=== PATIENT | female | born 1990 | race Caucasian/White ===

== ENCOUNTER 2016-07-30 17:31 | Inpatient (IN) | payer OTHER ==
[~2016-07-30] VITALS: Ht 162.6 cm; Wt 90.3 kg
[~2016-07-30 17:31] MED LIST: PNV1CAPS17 PO
[2016-07-30] MEDS ORDERED: LACTATED RINGER'S 1,000 ML IV PRN (18:00)
[2016-07-30] MEDS ORDERED: DINOPROSTONE 10 MG VAG SUPP VAG ONE (18:30)
[2016-07-30] MEDS ORDERED: BUTORPHANOL 2 MG INJ IV PRN ×2 (18:30)
[2016-07-30] MEDS ORDERED: OXYTOCIN 30 UNITS/LR 500 ML IV SCH ×2 (18:30)
[2016-07-30] MEDS ORDERED: LIDOCAINE 1% (MPF) 30 ML INJ INJ PRN (18:30)
[2016-07-30] MEDS ORDERED: AMPICILLIN 2 GM/NS (PMX) 100 ML IV ONE (18:30)
[2016-07-30] MEDS ORDERED: MISOPROSTOL 200 MCG TAB PR PRN (18:30)
[2016-07-30] MEDS ORDERED: METHYLERGONOVINE 0.2 MG INJ IM PRN (18:30)
[2016-07-30] MEDS ORDERED: CARBOPROST 250 MCG INJ IM PRN (18:30)
[2016-07-30] MEDS ORDERED: OXYTOCIN 30 UNITS/LR 500 ML IV PRN (18:30)
[2016-07-30] MEDS ORDERED: ACETAMINOPHEN/CODEINE #3 TAB PO PRN (18:30)
[2016-07-30] MEDS ORDERED: IBUPROFEN 600 MG TAB PO PRN (18:30)
--- NOTE | 2016-07-30 18:41 | CONS ---
Date/Time of Note Date/Time of Note DATE: 07/30/16 TIME: 18:33 Consultation Date/Type/Reason Admit Date/Time July 30, 2006 OB triage consult Reason for Consultation This patient is a 25 years old 3 para 1 , 1 term 1 ,with estimated date of confinement of July 29, 2016 which makes her 40 weeks and 1 day now. She came in to triage and complaining of uterine contractions On general examination she is a well-developed well-nourished patient at term. Her general vital signs appears to be normal with blood pressure 129/80 pulse 91 respiration 20 and temperature 98.1 On examining of her abdomen she does not have any contractions. Presentation appears to be vertex On pelvic examination the cervix is 1 cm long and -3 station with intact membranes Hx of Present Illness Constitutional: No chills, No diaphoresis, No disoriented, No febrile, No improved, No no complaints, No other, No poor po, No requiring IVF, No requiring O2 Eyes: No discharge, No no complaints, No other, No pain, No redness, No visual change ENT: No bleeding, No congestion, No discharge, No dysphagia, No no complaints, No other, No pain, No sore throat Respiratory: No cough, No no complaints, No other, No pain, No pleuritic pain, No shortness of breath, No sputum, No wheezing Cardiovascular: No chest pain, No edema, No lightheadedness, No no complaints, No orthopenea, No other, No palpitations, No paroxysmal nocturnal dyspnea Gastrointestinal: other (On pelvic exam as I mentioned her cervix is about 1 cm long and -2 station with intact membranes), No blood, No constipation, No decreased appetite, No diarrhea, No flatus, No nausea, No no complaints, No pain, No passing stool, No vomiting Genitourinary: No bleeding, No discharge, No dysuria, No flank pain, No hematuria, No no complaints, No other Musculoskeletal: No back pain, No bone/joint pain, No neck pain, No no complaints, No other, No restricted range of motion, No swelling Skin: No bruising, No erythema, No laceration, No no complaints, No other, No pruritis, No rash, No skin lesions Neurologic: No confusion, No dizziness, No focal-weakness, No headache, No no complaints, No other, No seizure, No syncope Endocrine: No dry skin, No no complaints, No other, No polydypsia, No polyuria , No temp intolerance Exam/Review of Systems Medications Medications Current Medications Lactated Ringer's 1,000 ml @ 125 mls/hr Q8H IV ; Start 07/30/16 at 18:18 Ampicillin 100 ml @ 100 mls/hr ONCE ONCE IV ; Start 07/30/16 at 18:30; Stop at 19:29 Ampicillin (Ampicillin 1 Gm/ NS (Pmx)) 50 ml @ 100 mls/hr Q4H IV ; Start at 22:30 Butorphanol Tartrate (Stadol) 1 mg Q2H PRN IV PAIN; Start 07/30/16 at 18:30 Butorphanol Tartrate (Stadol) 2 mg Q2H PRN IV PAIN; Start 07/30/16 at 18:30 Lidocaine 30 ml 30 ml ONCE PRN INJ EPISIOTOMY/TEARING; Start 07/30/16 at 18:30 Oxytocin/Lactated Ringer's 500 ml @ 125 mls/hr ONCE IV ; Start 07/30/16 at 18: 30 Ibuprofen (Motrin) 600 mg ONCE PRN PO Mild Pain (Pain Score 1-3); Start at 18:30 Acetaminophen/ Codeine Phosphate 2 tab 2 tab ONCE PRN PO Moderate to Severe Pain (4-10); Start 07/30/16 at 18:30 Lactated Ringer's 1,000 ml @ 2,000 mls/hr Q30M PRN IV PRE-EPIDURAL BOLUS; Start 07/30/16 at 18:00 Oxytocin/Lactated Ringer's 500 ml @ 0 mls/hr ONCE PRN IV For Hemorrhage Management; Start 07/30/16 at 18:30 Methylergonovine Maleate (Methergine) 0.2 mg ONCE PRN IM VAGINAL BLEEDING; Start 07/30/16 at 18:30 Carboprost Tromethamine (Hemabate) 250 mcg ONCE PRN IM VAGINAL BLEEDING; Start 07/30/16 at 18:30 Misoprostol (Cytotec) 1,000 mcg ONCE PRN [place] VAGINAL BLEEDING; Start 07/30/16 at 18:30 JOSE A ADAIR MD July 30, 2016 18:41
[2016-07-30 19:18] VITALS: BP 129/80; PULSE 91; RESP 20; Ht 162.6 cm; Wt 90.3 kg
--- NOTE | 2016-07-30 19:47 | TRIAGE ---
OB Triage Datetime Report Generated by CPN: 07/30/2016 19:47 Datetime: 07/30/2016 19:35 Time of Arrival: 07/30/2016 17:27 EGA: 40.1 Arrived By: Ambulatory Arrived From: Home Chief Complaint: UC'S , VAGINAL PRESSURE Movement: Present Contractions: Irregular Contractions: 5-10 Rupture of Membranes: Denies Vaginal Bleeding: None Vaginal Discharge: Denies Recent Sexual Intercouse: Denies Abdominal Trauma: Not Applicable Patient Complaints: Contractions; Cramping; Back Pain Time Provider Notified: 07/30/2016 18:00 Provider Notified: DR. ADAIR Initial Plan: SVE Datetime: 07/30/2016 19:05 Labor Evaluation Frequency: IRREG Monitor Mode: External Duration (sec)2399: 50-90 Quality: Mild Pattern: Normal: <= 5 Contractions in 10 Minutes Resting Tone [place]: Relaxed Contraction Comments: NST REACTIVE FOR GESTATIONAL AGE Heart Rate FHR Baseline Rate: 135 Monitor Mode: External US Variability: Moderate 6-25 bpm Accelerations: 15X15 Decelerations: None Category: Category I Datetime: 07/30/2016 19:01 Membrane Status: Intact Datetime: 07/30/2016 18:26 Vaginal Exam Dilatation (cms): 1.0 Effacement (%): 30 Station: -3 Exam By: OGBODU Vaginal Bleeding: None Cervix, Consistency: Moderate Cervix, Position: Anterior Presentation 'A': Cephalic Datetime: 07/30/2016 18:00 Stage of : OB Triage Maternal Assessment Level of Consciousness: Fully Conscious DTR's/Clonus: DTRs 2+; No Clonus Headache: Denies Blurred Vision: No Respiratory Effort: Unlabored; Regular Rhythm; Equal Expansion Breath Sounds, Left: Clear and Equal Breath Sounds, Right: Clear and Equal Nausea/Vomiting: Denies RUQ Epigastric Pain: Denies Lower Extremities Edema: None Degree: None Upper Extremities Edema: None Degree: None Facial Edema: None Temperature Route: Axillary Fall Risk Assessment History of Falling: (0) No Secondary Diagnosis: (0) No Ambulatory Aid: (0) Bedrest/Nurse Assist IV Therapy: (0) No Gait: (0) Normal/Bedrest/Immobile Mental Status: (0) Oriented to Own Ability Fall Score: 0 Fall Risk Score Definition: No Risk: No action required
--- NOTE | 2016-07-30 20:36 | RADRPT ---
PROCEDURE: Obstetrical ultrasound. CLINICAL INDICATION: , evaluation. Pelvic pain. TECHNIQUE: Transabdominal sonographic images of the pelvis are obtained. COMPARISON: OB ultrasound 06/24/2016 FINDINGS: Single intrauterine gestation. There is a cephalic presentation. Measurements were made in order to determine age. The results are as follows: BPD = 9.76 cm HC = 35.31 cm AC = 35.5 a cm FL = 7.64 cm Heart rate = 138 beats per minute The placenta is anterior. There is no evidence for an abruption or placenta previa. Ovaries are not visualized. IMPRESSION: Single intrauterine gestation of approximately 40 weeks 0 days by ultrasound criteria. [place] estimated weight = 3855 g; 67 percentile for gestational age of 40 weeks 1 days. RPTAT: AADD .Bart Montero MD, Date Time Electronically viewed and signed by .Bart Montero MD, MD on 07/30/2016 20:36 .B/
[2016-07-30] MEDS: LACTATED RINGER'S 1,000 ML IV SCH (21:18)
--- NOTE | 2016-07-30 21:43 | HP ---
Date/Time of Note Date/Time of Note DATE: 07/30/16 TIME: 21:40 OB - History Hx of Present Chief Complaint: contractions Estimated Due Date: July 30, 2016 : 3 Para: 1 Spontaneous : 1 Therapeutic : 0 Care: Good Care Ultrasounds: Normal mid trimester US Obstetrical Complications: None Medical Complications: None Past Family/Social History * Past Medical, Surgical, Family and Obstetric Histories reviewed from chart. GBS Status: Negative OB Admission Exam Vital Signs Vital Signs Vital Signs Date Time Temp Pulse Resp B/P Pulse Ox O2 Delivery O2 Flow Rate FiO2 07/30/16 19:18 98.1 91 20 129/80 98 Room Air Physical Exam HEENT: WNL Heart: Rhythm Normal Lungs: Clear Abdomen: WNL Extremities: Normal Cervical Dilatation: 1cm Effacement: 50% Station: -1 Membranes: Intact Heart Rate: 140's Accelerations: Accelerations Present Decelerations: No Decelerations Varibility: Moderate OB Assessment/Plan Reason for admission: other (Term ) Plan: Induction JUD BECKWITH MD July 30, 2016 21:43
[2016-07-30 21:56] LABS: ADD SCAN DIFF NO
[2016-07-30 22:01] LABS: BASOPHILS % 0.2 % (0.0-2.0); EOSINOPHILS % 0.4 % (0.0-7.0); HEMATOCRIT 33.9 % (37.0-47.0); HEMOGLOBIN 11.6 g/dl (12.0-16.0); LYMPHOCYTES # 3.1 10^3/ul (0.8-2.9); LYMPHOCYTES % 30.1 % (15.0-51.0); MEAN CORPUSCULAR HEMOGLOBIN 29.9 pg (29.0-33.0); MEAN CORPUSCULAR HGB CONC 34.2 g/dl (32.0-37.0); MEAN CORPUSCULAR VOLUME 87.4 fl (82.0-101.0); MEAN PLATELET VOLUME 11.7 fl (7.4-10.4); MONOCYTE # 0.8 10^3/ul (0.3-0.9); MONOCYTES % 8.1 % (0.0-11.0); NEUTROPHIL # 6.2 10^3/ul (1.6-7.5); NEUTROPHILS % 60.7 % (39.0-77.0); PLATELET COUNT 226 10^3/UL (140-415); RED BLOOD COUNT 3.88 10^6/ul (4.20-5.40); RED CELL DISTRIBUTION WIDTH 13.8 % (11.5-14.5); WHITE BLOOD COUNT 10.2 10^3/ul (4.8-10.8)
[2016-07-30] MEDS: MISOPROSTOL 25 MCG CAPSULE PO SCH (22:07)
[2016-07-30 22:14] LABS: INR 0.98
[2016-07-30 22:15] LABS: PARTIAL THROMBOPLASTIN TIME 26.7 Sec (25.0-35.0)
[2016-07-30] MEDS ORDERED: AMPICILLIN 1 GM/NS (PMX) 50 ML IV SCH (22:30)
[2016-07-31] MEDS: MISOPROSTOL 25 MCG CAPSULE PO SCH ×2 (02:05→06:00)
[2016-07-31] MEDS: LACTATED RINGER'S 1,000 ML IV SCH ×3 (04:37→20:39)
[2016-07-31] MEDS ORDERED: DINOPROSTONE 10 MG VAG SUPP VAG ONE ×2 (10:00→23:00)
--- NOTE | 2016-07-31 16:59 | QN ---
Documentation Comment 25 years old 3 para 1 admitted at 40 weeks and 2 day for induction of labor, induction started with Cervidil which was placed in the vagina at 1030 today at the time of Cervidil insertion cervix was closed 50% effaced vertex at -2 station, patient having mild contractions, according to the nursing examination cervix seems softer and dilated to 1cm Cervidil will be remove at 10 PM we will continue induction of labor pending cervical dilatation at 10 PM , if 2 cm or more Pitocin IV drip. Is contemplated CINTHYA MURCIA MD July 31, 2016 16:58
[2016-08-01] MEDS: LACTATED RINGER'S 1,000 ML IV SCH ×4 (04:51→22:57)
[2016-08-01 13:07] LABS: RUBELLA ANTIBODY - IGG 4.52 index
[2016-08-01] MEDS ORDERED: OXYTOCIN 30 UNITS/LR 500 ML IV SCH (13:30)
--- NOTE | 2016-08-01 18:15 | QN ---
Documentation Comment Vital signs stable, christiane every 3-4 minute pelvic exam cervix 3 cm 75% effaced vertex at -2 station, not much change from previous exam requesting labor epidural, will continue labor augmentation , had premature rupture of membrane at 1451, if not delivered within the next 3 hours will consider prophylactic antibiotics. CINTHYA MURCIA MD August 01, 2016 18:15
[2016-08-01] MEDS ORDERED: DIPHENHYDRAMINE 50 MG INJ IV PRN (19:00)
[2016-08-01] MEDS ORDERED: KETOROLAC 30 MG INJ IV PRN (19:00)
[2016-08-01] MEDS ORDERED: HYDROmorphONE 1 MG/ML SYG IV PRN ×2 (19:00)
[2016-08-01] MEDS ORDERED: NALOXONE (0.4 MG/ML) INJ IV PRN (19:00)
[2016-08-01] MEDS ORDERED: FENTAnyl 2MCG/ML-ROPIV 0.2% 100 ML BAG EPI SCH (19:00)
[2016-08-01] MEDS ORDERED: ONDANSETRON 4 MG INJ IV PRN (19:00)
[2016-08-01] MEDS ORDERED: ACETAMINOPHEN 325 MG TAB PO PRN (22:00)
[2016-08-02] VITALS (14 sets, daily range): BP systolic 109–143; BP diastolic 56–81; PULSE 74–157; RESP 18–22
--- NOTE | 2016-08-02 04:21 | LDN ---
Date/Time of Note Date/Time of Note DATE: 08/02/16 TIME: 04:17 Delivery Summary normal vaginal delivery Weeks of Gestation 40w3d Placenta Delivered: Spontaneously Meconium: none Episiotomy: No Perineal laceration: 1 Laceration repair: 000ch gut Anesthesia type: Epidural Estimated blood loss: 50 Sponge & Needle done & correct: Yes All needle counts correct: Yes Any foreign bodies felt in the: No Problems: Delivery Information Sex Sex: male Apgars 1 Minute: 8 5 Minute: 9 Suctioning Nose & mouth suctioned at alexy: Yes Delee suction performed: No Umbilical Cord Umbilical cord with: 3 Vessels Cord presentations: no nuchal cord Cord Blood was obtained: Yes Mother & Baby Disposition Disposition Mom & Baby to Maternity; Good: Yes Mom transferred to: Other Baby to NICU: No () KAREEM MCGUIRE MD August 02, 2016 04:21
[2016-08-02] MEDS: LACTATED RINGER'S 1,000 ML IV* SCH ×3 (04:22→20:22)
[2016-08-02] MEDS ORDERED: MISOPROSTOL 200 MCG TAB PR PRN ×2 (04:30→06:30)
[2016-08-02] MEDS ORDERED: CARBOPROST 250 MCG INJ IM PRN ×2 (04:30→06:30)
[2016-08-02] MEDS ORDERED: METHYLERGONOVINE 0.2 MG INJ IM PRN ×2 (04:30→06:30)
[2016-08-02] MEDS ORDERED: BENZOCAINE 20% 56 ML SPRAY TOP PRN (06:30)
[2016-08-02] MEDS ORDERED: OXYCODONE/ASPIRIN (4.88/325) TAB PO PRN ×2 (06:30)
[2016-08-02] MEDS ORDERED: LANOLIN 7 GM TUBE TOP PRN (06:30)
[2016-08-02] MEDS ORDERED: WITCH HAZEL/GLYCERIN PAD PR PRN (06:30)
[2016-08-02] MEDS ORDERED: OXYTOCIN 30 UNITS/LR 500 ML IV PRN (06:30)
[2016-08-02] MEDS ORDERED: ZOLPIDEM 5 MG TAB PO PRN (06:30)
[2016-08-02] MEDS: IBUPROFEN 600 MG TAB PO SCH ×4 (07:00→23:26)
[2016-08-02] MEDS: OXYTOCIN 30 UNITS/LR 500 ML IV PRN ×2 (07:18→08:29)
[2016-08-02] MEDS ORDERED: morphine 4 MG/ML VIAL IV STA (08:14)
[2016-08-02] MEDS ORDERED: MISOPROSTOL 200 MCG TAB SL STA (08:32)
[2016-08-02] MEDS ORDERED: MULTIVIT/MIN/FOLATE/IRON/PREN TAB PO ONE (09:00)
[2016-08-02] MEDS: SENNA/DOCUSATE NA (8.6MG/50MG) TAB PO SCH ×2 (09:00→21:00)
[2016-08-02] MEDS ORDERED: DIPHENHYDRAMINE 50 MG INJ ONE (09:20)
[2016-08-02] MEDS ORDERED: DIPHENHYDRAMINE 50 MG INJ IV ONE (09:30)
[2016-08-02 09:51] LABS: ADD SCAN DIFF NO
[2016-08-02 10:00] LABS: BASOPHILS % 0.1 % (0.0-2.0); HEMATOCRIT 34.3 % (37.0-47.0); HEMOGLOBIN 11.3 g/dl (12.0-16.0); LYMPHOCYTES # 2.6 10^3/ul (0.8-2.9); LYMPHOCYTES % 14.1 % (15.0-51.0); MEAN CORPUSCULAR HEMOGLOBIN 29.6 pg (29.0-33.0); MEAN CORPUSCULAR HGB CONC 32.9 g/dl (32.0-37.0); MEAN CORPUSCULAR VOLUME 89.8 fl (82.0-101.0); MEAN PLATELET VOLUME 11.5 fl (7.4-10.4); MONOCYTE # 1.2 10^3/ul (0.3-0.9); MONOCYTES % 6.4 % (0.0-11.0); NEUTROPHIL # 14.3 10^3/ul (1.6-7.5); NEUTROPHILS % 78.7 % (39.0-77.0); PLATELET COUNT 209 10^3/UL (140-415); RED BLOOD COUNT 3.82 10^6/ul (4.20-5.40); RED CELL DISTRIBUTION WIDTH 13.6 % (11.5-14.5); WHITE BLOOD COUNT 18.2 10^3/ul (4.8-10.8)
[2016-08-02] MEDS ORDERED: SOD CHLORIDE 0.9% 500 ML IV ONE (10:00)
[2016-08-02] MEDS: SOD CHLORIDE 0.9% 1,000 ML IV SCH ×2 (10:00→18:00)
[2016-08-02 10:06] LABS: ALBUMIN 2.8 g/dl (3.3-4.9); ALBUMIN/GLOBULIN RATIO 0.96; BILIRUBIN,INDIRECT 0.3 mg/dl (0-1.1); BILIRUBIN,TOTAL 0.3 mg/dl (0.2-1.3); CALCIUM 8.9 mg/dl (8.4-10.2); CREATININE 0.55 mg/dl (0.44-1.00); POTASSIUM 4.5 mmol/L (3.5-5.1); TOTAL PROTEIN 5.7 g/dl (6.1-8.1)
[2016-08-02] MEDS ORDERED: SOD CHLORIDE 0.9% 100 ML ONE (10:13)
[2016-08-02] MEDS ORDERED: IODIXANOL LOCM 100 ML BTL ONE (10:13)
[2016-08-02] MEDS ORDERED: IODIXANOL LOCM 50 ML BTL ONE (10:14)
--- NOTE | 2016-08-02 10:45 | RADRPT ---
PROCEDURE: CT pulmonary angiogram. CLINICAL INDICATION: Chest pain and shortness of breath. TECHNIQUE: CT scan of the chest and CT pulmonary angiogram was performed utilizing axial tomograp hic imaging from the thoracic inlet to the domes of the diaphragm. High-resolution thin slice coron al and sagittal imaging was obtained from the axial source images. 3-D volumetric rendered post pro cessing was performed as well. The patient was examined following the uncomplicated intravenous adm inistration of 115 cc of Visipaque 320. The images were reviewed on a PACS workstation. The total ex am CTDI equals 42.25, 18.62 and the total exam DLP equals 603.23 mGy-cm. COMPARISON: No prior studies are available for comparison. FINDINGS: The lungs demonstrate bibasilar atelectatic changes. No focal airspace opacity, pleural effusion, o r pneumothorax is seen. No pulmonary nodules or masses are identified. There is no abnormal interst itial thickening. The trachea and proximal bronchi are unremarkable. The visualized thyroid is unremarkable. The heart is mildly enlarged. The aorta demonstrates rocky l branching pattern. The aorta is normal in caliber. There is no evidence of aortic dissection. Th e central pulmonary arteries are normal in caliber. The attenuation of the central pulmonary arteri es measures 200 HU. No filling defects are identified within the proximal pulmonary arterial branch es to suggest pulmonary embolism. No hilar, mediastinal, or axillary lymphadenopathy is identified. Limited evaluation of the upper abdomen is unremarkable. The osseous structures are unremarkable. IMPRESSION: 1. No CT evidence for pulmonary embolism. 2. Low lung volumes with mild bibasilar atelectasis. 3. Mild cardiomegaly. RPTAT: HH .Federica Starks MD, Date Time Electronically viewed and signed by .Federica Starks MD, on 08/02/2016 10:44 .G/
[2016-08-02] MEDS ORDERED: ACETAMINOPHEN 325 MG TAB PO PRN (12:00)
[2016-08-02] MEDS: OXYTOCIN 30 UNITS/LR 500 ML IV SCH ×4 (13:13→23:30)
[2016-08-02] MEDS ORDERED: DIPHENOXYLATE/ATROPINE TAB PO PRN (16:00)
--- NOTE | 2016-08-02 17:59 | QN ---
Documentation Comment called to room to evaluate pph some clots removed but furhter clotes noted and Pt in pain. morphine given and pt with allergic?/axiety attack with elevated Hr and feeling shakey. benedryl given. vss exam wnl. clots removed from vagina. rapid response called. ekg done. bp 140/60 o2 98 pouylse 140 ekg sinus tacy exam wnl a/p PPH cbc,cmp,ekg allergic reaction? ct angio continue care >30 minute with patient RICARDO VALLE MD August 02, 2016 17:59
[2016-08-02 18:20] LABS: ADD SCAN DIFF NO
[2016-08-02 18:22] LABS: BASOPHILS % 0.1 % (0.0-2.0); EOSINOPHILS % 0.1 % (0.0-7.0); HEMATOCRIT 27.7 % (37.0-47.0); HEMOGLOBIN 9.7 g/dl (12.0-16.0); LYMPHOCYTES # 2.6 10^3/ul (0.8-2.9); LYMPHOCYTES % 19.4 % (15.0-51.0); MEAN CORPUSCULAR VOLUME 85.8 fl (82.0-101.0); MEAN PLATELET VOLUME 11.4 fl (7.4-10.4); MONOCYTE # 0.9 10^3/ul (0.3-0.9); MONOCYTES % 6.7 % (0.0-11.0); NEUTROPHIL # 9.8 10^3/ul (1.6-7.5); NEUTROPHILS % 73.3 % (39.0-77.0); PLATELET COUNT 183 10^3/UL (140-415); RED BLOOD COUNT 3.23 10^6/ul (4.20-5.40); RED CELL DISTRIBUTION WIDTH 13.6 % (11.5-14.5); WHITE BLOOD COUNT 13.4 10^3/ul (4.8-10.8)
--- NOTE | 2016-08-02 19:32 | RADRPT ---
Vent Rate: 124 bpm RR Interval: 0 msec DE Interval: 124 msec QRS Duration: 76 msec QT Interval: 296 msec QTC Interval: 425 msec P-R-T Clemmons: 65 - 60 - 63 degrees Sinus tachycardia Nonspecific ST abnormality Abnormal ECG Baseline wander/artifact Electronically Signed By: Riley Rodriguez [id number]
[2016-08-03] MEDS: SOD CHLORIDE 0.9% 1,000 ML IV SCH (02:00)
[2016-08-03] MEDS: OXYTOCIN 30 UNITS/LR 500 ML IV SCH (03:30)
[2016-08-03 04:00] VITALS: BP 108/72; PULSE 73; RESP 19
[2016-08-03] MEDS: LACTATED RINGER'S 1,000 ML IV* SCH (04:22)
[2016-08-03] MEDS: IBUPROFEN 600 MG TAB PO SCH ×4 (05:55→23:30)
[2016-08-03 08:10] LABS: ADD SCAN DIFF NO
[2016-08-03 08:18] LABS: BASOPHILS % 0.1 % (0.0-2.0); EOSINOPHILS # 0.1 10^3/ul (0.0-0.5); EOSINOPHILS % 0.6 % (0.0-7.0); HEMATOCRIT 26.3 % (37.0-47.0); HEMOGLOBIN 8.8 g/dl (12.0-16.0); LYMPHOCYTES # 2.4 10^3/ul (0.8-2.9); LYMPHOCYTES % 30.8 % (15.0-51.0); MEAN CORPUSCULAR HEMOGLOBIN 29.5 pg (29.0-33.0); MEAN CORPUSCULAR HGB CONC 33.5 g/dl (32.0-37.0); MEAN CORPUSCULAR VOLUME 88.3 fl (82.0-101.0); MEAN PLATELET VOLUME 11.7 fl (7.4-10.4); MONOCYTE # 0.6 10^3/ul (0.3-0.9); MONOCYTES % 7.2 % (0.0-11.0); NEUTROPHIL # 4.7 10^3/ul (1.6-7.5); NEUTROPHILS % 60.5 % (39.0-77.0); PLATELET COUNT 156 10^3/UL (140-415); RED BLOOD COUNT 2.98 10^6/ul (4.20-5.40); WHITE BLOOD COUNT 7.7 10^3/ul (4.8-10.8)
[2016-08-03 08:20] VITALS: BP 105/59; PULSE 69; RESP 18
[2016-08-03] MEDS: SENNA/DOCUSATE NA (8.6MG/50MG) TAB PO SCH ×2 (09:00→21:00)
--- NOTE | 2016-08-03 09:28 | PN ---
Date/Time of Note Date/Time of Note DATE: 08/03/16 TIME: 09:27 OB Subjective Subjective Subjective day 1 Afebrile vital signs stable normal day 1 lochia hemoglobin 8.8 patient complains of no lightheadedness while walking abdomen soft uterus firm extremity normal Laboratory Tests Test 08/02/16 09:35 08/02/16 18:10 08/03/16 06:56 White Blood Count 18.210^3/ul 13.410^3/ul 7.710^3/ul Red Blood Count 3.8210^6/ul 3.2310^6/ul 2.9810^6/ul Hemoglobin 11.3g/dl 9.7g/dl 8.8g/dl Hematocrit 34.3% 27.7% 26.3% Mean Corpuscular Volume 89.8fl 85.8fl 88.3fl Mean Corpuscular Hemoglobin 29.6pg 30.0pg 29.5pg Mean Corpuscular Hemoglobin Concent 32.9g/dl 35.0g/dl 33.5g/dl Red Cell Distribution Width 13.6% 13.6% 14.0% Platelet Count 11195^3/UL 02117^3/UL 77196^3/UL Mean Platelet Volume 11.5fl 11.4fl 11.7fl Neutrophils % 78.7% 73.3% 60.5% Lymphocytes % 14.1% 19.4% 30.8% Monocytes % 6.4% 6.7% 7.2% Eosinophils % 0.0% 0.1% 0.6% Basophils % 0.1% 0.1% 0.1% Nucleated Red Blood Cells % 0.0/100WBC 0.0/100WBC 0.0/100WBC Neutrophils # 14.310^3/ul 9.810^3/ul 4.710^3/ul Lymphocytes # 2.610^3/ul 2.610^3/ul 2.410^3/ul Monocytes # 1.210^3/ul 0.910^3/ul 0.610^3/ul Eosinophils # 0.010^3/ul 0.010^3/ul 0.110^3/ul Basophils # 0.010^3/ul 0.010^3/ul 0.010^3/ul Nucleated Red Blood Cells # 0.010^3/ul 0.010^3/ul 0.010^3/ul Sodium Level 132mmol/L Potassium Level 4.5mmol/L Chloride Level 108mmol/L Carbon Dioxide Level 15mmol/L Anion Gap 14 Blood Urea Nitrogen 6mg/dl Creatinine 0.55mg/dl Glucose Level 82mg/dl Calcium Level 8.9mg/dl Total Bilirubin 0.3mg/dl Direct Bilirubin 0.00mg/dl Indirect Bilirubin 0.3mg/dl Aspartate Amino Transf (AST/SGOT) 41IU/L Alanine Aminotransferase (ALT/SGPT) 24IU/L Alkaline Phosphatase 207IU/L Total Protein 5.7g/dl Albumin 2.8g/dl Globulin 2.90g/dl Albumin/Globulin Ratio 0.96 Current Medications Medications (Trade) Dose Ordered Sig/Robbie Route PRN Reason Start Time Stop Time Status Last Admin Dose Admin Lactated Ringer's 1,000 ml @ 125 mls/hr Q8H IV 07/30/16 18:18 08/02/16 06:28 DC 08/01/16 22:57 Ampicillin 100 ml @ 100 mls/hr ONCE ONCE IV 07/30/16 18:30 07/30/16 21:27 DC Ampicillin (Ampicillin 1 Gm/ NS (Pmx)) 50 ml @ 100 mls/hr Q4H IV 07/30/16 22:30 07/30/16 22:30 DC Dinoprostone (Cervidil Vaginal Supp) 10 mg ONCE ONCE VAG 07/30/16 18:30 07/30/16 21:27 DC Butorphanol Tartrate (Stadol) 1 mg Q2H PRN IV PAIN 07/30/16 18:30 08/02/16 06:28 DC Butorphanol Tartrate (Stadol) 2 mg Q2H PRN IV PAIN 07/30/16 18:30 08/02/16 06:28 DC Lidocaine 30 ml 30 ml ONCE PRN INJ EPISIOTOMY/TEARING 07/30/16 18:30 08/02/16 06:28 DC Oxytocin/Lactated Ringer's 500 ml @ 125 mls/hr ONCE -MAY REPEAT X1 IV 07/30/16 18:30 08/02/16 06:28 DC 08/02/16 04:13 Oxytocin/Lactated Ringer's 500 ml @ 125 mls/hr ONCE IV 07/30/16 18:30 08/02/16 06:28 DC 08/02/16 04:21 Ibuprofen (Motrin) 600 mg ONCE PRN PO Mild Pain (Pain Score 1-3) 07/30/16 18:30 08/01/16 18:49 DC Acetaminophen/ Codeine Phosphate 2 tab 2 tab ONCE PRN PO Moderate to Severe Pain (4-10) 07/30/16 18:30 08/02/16 06:28 DC Lactated Ringer's 1,000 ml @ 2,000 mls/hr Q30M PRN IV PRE-EPIDURAL BOLUS 07/30/16 18:00 08/02/16 06:28 DC Oxytocin/Lactated Ringer's 500 ml @ 0 mls/hr ONCE PRN IV For Hemorrhage Management 07/30/16 18:30 08/02/16 06:28 DC Methylergonovine Maleate (Methergine) 0.2 mg ONCE PRN IM VAGINAL BLEEDING 07/30/16 18:30 08/02/16 06:28 DC Carboprost Tromethamine (Hemabate) 250 mcg ONCE PRN IM VAGINAL BLEEDING 07/30/16 18:30 08/02/16 06:28 DC Misoprostol (Cytotec) 1,000 mcg ONCE PRN RI VAGINAL BLEEDING 07/30/16 18:30 08/02/16 06:28 DC Misoprostol (Cytotec 25 Mcg Capsule) 50 mcg Q4H PO 07/30/16 22:00 07/31/16 09:49 DC 07/31/16 02:05 Dinoprostone (Cervidil Vaginal Supp) 10 mg ONCE ONCE VAG 07/31/16 10:00 07/31/16 10:01 DC 07/31/16 10:48 Dinoprostone 10 mg 10 mg ONCE ONCE VAG 07/31/16 23:00 07/31/16 23:01 DC 08/01/16 01:35 Oxytocin/Lactated Ringer's 500 ml @ 0 mls/hr TITRATE IV 08/01/16 13:30 08/02/16 06:28 DC 08/01/16 14:04 Naloxone HCl (Narcan) 0.1 mg Q2M PRN IV FOR RESP RATE 8 OR LESS 08/01/16 19:00 08/02/16 06:28 DC Ketorolac Tromethamine (Toradol) 30 mg Q6H PRN IV PAIN 08/01/16 19:00 08/02/16 06:28 DC Hydromorphone HCl (Dilaudid) 0.2 mg Q3H PRN IV PAIN LEVEL 1-5 08/01/16 19:00 08/02/16 06:28 DC Hydromorphone HCl (Dilaudid) 0.4 mg Q3H PRN IV PAIN LEVEL 6-10 08/01/16 19:00 08/02/16 06:28 DC Diphenhydramine HCl (Benadryl) 25 mg Q6H PRN IV ITCHING 08/01/16 19:00 08/02/16 06:28 DC Ondansetron HCl (Zofran Inj) 4 mg Q6H PRN IV NAUSEA AND/OR VOMITING 08/01/16 19:00 08/02/16 06:28 DC Fentanyl/ Ropivacaine 100 ml EPIDURAL INFUSION EPI 08/01/16 19:00 08/02/16 06:28 DC 08/02/16 01:28 Acetaminophen 650 mg 650 mg Q4H PRN PO PAIN AND OR ELEVATED TEMP 08/01/16 22:00 08/02/16 06:28 DC 08/01/16 21:56 Lactated Ringer's 1,000 ml @ 125 mls/hr Q8H IV* 08/02/16 04:22 08/02/16 17:42 Oxytocin/Lactated Ringer's 500 ml @ 0 mls/hr ONCE PRN IV For Hemorrhage Management 08/02/16 04:30 08/02/16 08:29 Methylergonovine Maleate (Methergine) 0.2 mg ONCE PRN IM VAGINAL BLEEDING 08/02/16 04:30 Carboprost Tromethamine (Hemabate) 250 mcg ONCE PRN IM VAGINAL BLEEDING 08/02/16 04:30 Misoprostol (Cytotec) 1,000 mcg ONCE PRN RI VAGINAL BLEEDING 08/02/16 04:30 Prenat Multivit/ Steel Analyst/Iron/Folic Ac ( S) 1 tab ONCE ONCE PO 08/02/16 09:00 08/02/16 09:01 DC 08/02/16 13:11 Ibuprofen (Motrin) 600 mg Q6 PO 08/02/16 06:30 08/03/16 05:55 Oxycodone/Aspirin (Percodan) 1 tab Q3H PRN PO PAIN LEVEL 1-5 08/02/16 06:30 Oxycodone/Aspirin (Percodan) 2 tab Q3H PRN PO PAIN LEVEL 6-10 08/02/16 06:30 08/02/16 07:05 Zolpidem Tartrate (Ambien) 5 mg QHS PRN PO INSOMNIA 08/02/16 06:30 Senna/Docusate Sodium (Senokot-S) 1 tab BID PO 08/02/16 09:00 Witch Vy/ Glycerin (Tucks Pads) 1 pad BEDSIDE MEDICATION PRN RI HEMORRHOID/EPISIOTMY PAIN 08/02/16 06:30 08/02/16 17:41 Benzocaine (Dermoplast Mcintosh) 1 spray BEDSIDE MEDICATION PRN TOP HEMORRHOID/EPISIOTMY PAIN 08/02/16 06:30 08/02/16 17:41 Lanolin (Gzu-[id number]-Mnwajp) 1 applic BEDSIDE MEDICATION PRN TOP BEDSIDE FOR ARELY TO NIPPLES 08/02/16 06:30 08/02/16 17:41 Diphtheria/ Tetanus/Acell Pertussis 0.5 ml 0.5 ml ONCE ONCE IM* 08/04/16 09:00 08/04/16 09:01 Oxytocin/Lactated Ringer's 500 ml @ 0 mls/hr ONCE PRN IV For Hemorrhage Management 08/02/16 06:30 Methylergonovine Maleate (Methergine) 0.2 mg ONCE PRN IM VAGINAL BLEEDING 08/02/16 06:30 Carboprost Tromethamine (Hemabate) 250 mcg ONCE PRN IM VAGINAL BLEEDING 08/02/16 06:30 Misoprostol (Cytotec) 1,000 mcg ONCE PRN RI VAGINAL BLEEDING 08/02/16 06:30 Morphine Sulfate (morphine) 4 mg ONCE STAT IV 08/02/16 08:14 08/02/16 08:19 DC 08/02/16 08:26 Misoprostol (Cytotec) 600 mcg ONCE STAT SL 08/02/16 08:32 08/02/16 08:43 DC 08/02/16 08:48 Diphenhydramine HCl (Benadryl) 50 mg STK-MED ONCE .ROUTE 08/02/16 09:20 08/02/16 09:21 DC Diphenhydramine HCl 50 mg 50 mg ONCE ONCE IV 08/02/16 09:30 08/02/16 09:31 DC 08/02/16 09:37 Sodium Chloride 500 ml @ 500 mls/hr Q1H ONCE IV 08/02/16 10:00 08/02/16 10:59 DC Sodium Chloride (NS) 1,000 ml @ 125 mls/hr Q8H IV 08/02/16 10:00 08/02/16 10:00 IV Flush 10 ml 10 ml STK-MED ONCE .ROUTE 08/02/16 10:13 08/02/16 10:14 DC 08/02/16 10:36 Sodium Chloride (NS) 100 ml @ ud STK-MED ONCE .ROUTE 08/02/16 10:13 08/02/16 10:14 DC 08/02/16 10:36 Iodixanol (Visipaque Locm) 100 ml STK-MED ONCE .ROUTE 08/02/16 10:13 08/02/16 10:14 DC 08/02/16 10:37 Iodixanol 50 ml 50 ml STK-MED ONCE .ROUTE 08/02/16 10:14 08/02/16 10:15 DC 08/02/16 10:38 Oxytocin/Lactated Ringer's 500 ml @ 125 mls/hr Q4H IV 08/02/16 11:30 08/02/16 13:13 Acetaminophen (Tylenol Tab) 650 mg Q4H PRN PO PAIN AND OR ELEVATED TEMP 08/02/16 12:00 Diphenoxylate HCl/ Atropine (Lomotil) 2 tab Q8 PRN PO DIARRHEA 08/02/16 16:00 08/02/16 16:05 CINTHYA MURCIA MD August 03, 2016 09:28
[2016-08-03 16:10] VITALS: BP 117/69; PULSE 63; RESP 19
[2016-08-03 19:50] VITALS: BP 113/62; PULSE 80; RESP 19
[2016-08-04] MEDS: LACTATED RINGER'S 1,000 ML IV* SCH ×2 (01:13→02:11)
[2016-08-04] MEDS: OXYTOCIN 30 UNITS/LR 500 ML IV SCH ×3 (01:13→02:11)
[2016-08-04] MEDS: SOD CHLORIDE 0.9% 1,000 ML IV SCH ×2 (01:13→02:00)
[2016-08-04 03:50] VITALS: BP 120/66; PULSE 69; RESP 18
[2016-08-04] MEDS: IBUPROFEN 600 MG TAB PO SCH ×2 (05:36→12:15)
[2016-08-04 08:20] VITALS: BP 121/32; PULSE 72; RESP 20
[2016-08-04] MEDS ORDERED: DIPHTH/TET/ACEL PERTUSS (ADULT) 0.5 ML VIAL IM* ONE (09:00)
[2016-08-04] MEDS: SENNA/DOCUSATE NA (8.6MG/50MG) TAB PO SCH (09:00)
--- NOTE | 2016-08-04 11:47 | PD.PPDC ---
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
--- NOTE | 2016-08-04 11:59 | DS ---
Date/Time of Note Date/Time of Note DATE: 08/04/16 TIME: 11:53 Discharge Summary Admission/Discharge Info Admit Date/Time July 30, 2016 at 18:30 Discharge Date/Time August 04 at 11:53 AM Final Diagnosis Post normal vaginal delivery, patient had hemorrhage requiring evacuation of the blood clots from the vagina and the lower segment of the uterus, after clost evacuated bleeding subsided, uterus was firm and well contracted. Patient Condition: Good Procedures Normal spontaneous vaginal, uterine bleeding treated with uterotonic medication after evacuation of the blood clots from the vagina Hospital Course Home Meds Reported Medications Pnv Comb.no58/Iron Bisgly/Fa ( Capsule) 1 Each Capsule, 1 EACH PO DAILY 05/30/13 Follow-up Plan instructions given recommended to make appointment with the clinic in 2 weeks Primary Care Provider Terry Ng Time spent on discharge: < 30 minutes CINTHYA MURCIA MD August 04, 2016 11:59
--- NOTE | 2016-08-05 11:07 | EN ---
Date/Time of Note Date/Time of Note DATE: 08/05/16 TIME: 11:05 Event Note Medicine Medicine Event Note [employer]IVER Note Date: Indication: Findings: Vitals: Reviewed and stable, good oxygenation on NC at 2L Quick Physical Exam: HEENT: NC/AT, KOLE SKIN: Gross inspection of the skin reveals no rashes, ulcerations or petechiae. NECK: Supple and symmetric. CHEST: Normal AP diameter and movement . LUNGS: Auscultation of the lungs revealed normal breath sounds without any other adventitious sounds or rubs. CARDIOVASCULAR: There was a regular rate and rhythm without any murmurs, gallops , rubs. Radial pulses were 2+ and symmetric. ABDOMEN: Soft and nontender with normal bowel sounds. No ascites was noted. MUSCULOSKELETAL: There was no tenderness or effusions noted. Muscle strength and tone were normal. EXTREMITIES: No cyanosis, clubbing or edema. NEUROLOGIC: No focal deficit, oltered mentation, Withdraws from stimuli PSYCHIATRIC:Unable to assess LABs: Recent Labs were reviewed and compared with prior and the following interventions were done 1. Stat IV flumazenil Results: Patient's condition was signed off to primary. Critical care time: 35 Please review chart and notes for further information if needed DONI FRIAS August 05, 2016 11:07
== END 2016-08-04 12:20 | disposition home or self-care (01) | DRG 775 ==
LOC: OBT 17:31 → L-D 17:32 → OBT 18:30 → L-D 19:34 → PP1 08-02 05:36 → TEL 08-02 10:45 → PP1 08-02 14:45
PROVIDERS: ADMIT Obstetrics & Gynecology; ATTEND Obstetrics & Gynecology
PROC: 10E0XZZ Delivery of Products of Conception, External Approach (ICD-10-PCS; principal; 2016-08-02)
DX: O48.0 Post-term pregnancy (principal); E66.01 Morbid (severe) obesity due to excess calories; Z3A.40 40 weeks gestation of pregnancy; O70.0 First degree perineal laceration during delivery; O99.214 Obesity complicating childbirth; Z68.34 Body mass index [BMI] 34.0-34.9, adult; Z37.0 Single live birth
CPT/HCPCS: 62319; 71275; 76815; 80053; 85025; 85610; 85730; 86592; 86762; 86850; 86870; 86885; 86900; 86901; 86920; 87340; 90715; 93005; G0463; J1200; J2270; J2590; J2790; J3010; J7030; J7040; J7120; Q9967

== ENCOUNTER 2016-08-29 08:52 | Emergency (ER) | payer OTHER ==
[~2016-08-29] VITALS: Ht 162.6 cm; Wt 81.0 kg
[2016-08-29 08:55] VITALS: Ht 162.6 cm; Wt 81.0 kg
[2016-08-29] MEDS ORDERED: LIDOCAINE/MYLANTA 40 ML BTL PO STA (09:22)
[2016-08-29] MEDS ORDERED: FAMOTIDINE 20 MG TAB PO STA (09:22)
[2016-08-29] MEDS ORDERED: ONDANSETRON 4 MG TAB PO ONE (09:30)
[2016-08-29 09:41] LABS: ADD SCAN DIFF NO
[2016-08-29 09:45] LABS: BASOPHILS % 0.2 % (0.0-2.0); EOSINOPHILS # 0.2 10^3/ul (0.0-0.5); HEMATOCRIT 37.5 % (37.0-47.0); HEMOGLOBIN 12.3 g/dl (12.0-16.0); LYMPHOCYTES % 32.6 % (15.0-51.0); MEAN CORPUSCULAR HEMOGLOBIN 28.3 pg (29.0-33.0); MEAN CORPUSCULAR HGB CONC 32.8 g/dl (32.0-37.0); MEAN CORPUSCULAR VOLUME 86.2 fl (82.0-101.0); MEAN PLATELET VOLUME 10.9 fl (7.4-10.4); MONOCYTE # 0.6 10^3/ul (0.3-0.9); MONOCYTES % 6.5 % (0.0-11.0); NEUTROPHIL # 5.4 10^3/ul (1.6-7.5); NEUTROPHILS % 58.5 % (39.0-77.0); PLATELET COUNT 274 10^3/UL (140-415); RED BLOOD COUNT 4.35 10^6/ul (4.20-5.40); RED CELL DISTRIBUTION WIDTH 14.1 % (11.5-14.5); WHITE BLOOD COUNT 9.2 10^3/ul (4.8-10.8)
[2016-08-29 09:49] LABS: ADD UMIC YES; URINE BILIRUBIN (Dip) NEGATIVE (NEGATIVE); URINE BLOOD (Dip) 1+ (NEGATIVE); URINE COLOR YELLOW (YELLOW); URINE GLUCOSE (Dip) NEGATIVE (NEGATIVE); URINE KETONES (Dip) NEGATIVE (NEGATIVE); URINE LEUKOCYTE ESTERASE (Dip) 1+ (NEGATIVE); URINE NITRITE (Dip) NEGATIVE (NEGATIVE); URINE TOTAL PROTEIN (Dip) 1+ (NEGATIVE); URINE UROBILINOGEN (Dip) 0.2 E.U./dL (0.1-1.0)
[2016-08-29 10:02] LABS: ALBUMIN 4.7 g/dl (3.3-4.9); ALBUMIN/GLOBULIN RATIO 1.8; BILIRUBIN,INDIRECT 0.3 mg/dl (0-1.1); BILIRUBIN,TOTAL 0.3 mg/dl (0.2-1.3); CALCIUM 9.4 mg/dl (8.4-10.2); CREATININE 0.65 mg/dl (0.44-1.00); TOTAL PROTEIN 7.3 g/dl (6.1-8.1); URIC ACID 3.1 mg/dl (3.1-7.9)
[2016-08-29 10:05] LABS: BACTERIA,URINE FEW; URINE RBCS 0-2 /HPF (0)
[2016-08-29 10:19] LABS: TROPONIN-I < 0.012 ng/ml (0.00-0.12)
[2016-08-29 10:19] LABS: INR 0.96; PROTIME 12.8 Sec (12.2-14.2)
[2016-08-29 10:20] LABS: PARTIAL THROMBOPLASTIN TIME 28.9 Sec (25.0-35.0)
--- NOTE | 2016-08-29 10:37 | RADRPT ---
PROCEDURE: Right Upper Quadrant Ultrasound. CLINICAL INDICATION: ruq and epigastric abdominal pain TECHNIQUE: Multiple real-time images were acquired of the patient's right upper quadrant abdomen a nd retroperitoneum utilizing a high resolution transducer. COMPARISON: None FINDINGS: The liver measures 16.4 cm, and demonstrates mildly increased echogenicity. The main portal vein is patent with proper directional flow. There is no intrahepatic biliary ductal dilatation. The extrahe patic common bile duct measures 6 mm. There is cholelithiasis. There is no gallbladder wall thickening or pericholecystic fluid. The visualized pancreas is unremarkable. The right kidney measures 12.6 cm and demonstrates normal echotexture. There is no right renal calcu lucero or hydronephrosis. The visualized abdominal aorta and IVC are grossly unremarkable. IMPRESSION: Cholelithiasis without evidence of acute cholecystitis. The CBD is top - normal in diameter. Mild hepatomegaly with mild fatty infiltration. RPTAT: EE Physician Fauzia Date Time Electronically viewed and signed by Physician Fauzia on 08/29/2016 10:37 /
[2016-08-29] MEDS ORDERED: HYDR-906 PO (11:01)
[2016-08-29] MEDS ORDERED: ONDA4TAB14 PO ×2 (11:02→19:38)
--- NOTE | 2016-08-29 11:07 | ERD ---
ER Documentation Chief Complaint Date/Time DATE: 08/29/16 TIME: 11:05 Chief Complaint Complains of abdominal pain x 3 days sent from clinic for eval HPI Patient is a 25-year-old female who is 4 weeks who presents to the ED with epigastric and right upper quadrant pain 2 days. She states that she was sent here from urgent care to rule out cholecystitis. She states that the pain comes and goes and is a 7 out of 10. She also complains of nausea with no vomiting. Last bowel movement was today. Patient is not breast-feeding. Denies headache or dizziness. Denies chest pain or cough or shortness of breath. Denies other areas of pain. Denies leg pain or leg swelling. Denies dizziness. She is currently on ciprofloxacin and metronidazole as prescribed by the urgent care. Denies vaginal bleeding. ROS All systems reviewed and are negative except as per history of present illness. Medications Home Meds Active Scripts Ondansetron (Ondansetron Odt) 4 Mg Tab.rapdis, 4 MG PO Q6H Y for NAUSEA AND/OR VOMITING, #10 TAB Prov:MUKESH LOPEZ PA-C 08/29/16 Hydrocodone/Acetaminophen (Kinder 5-325 Tablet) 1 Each Tablet, 1 TAB PO Q6H Y for PAIN, #7 TAB Prov:MUKESH LOPEZ PA-C 08/29/16 Reported Medications Pnv Comb.no58/Iron Bisgly/Fa ( Capsule) 1 Each Capsule, 1 EACH PO DAILY 05/30/13 Allergies Allergies: Coded Allergies: morphine (Verified Allergy, Unknown, THROAT SWELLING, "CLOSING", 08/29/16) PMhx/Soc Medical and Surgical Hx: pt denies Surgical Hx History of Surgery: No Anesthesia Reaction: No Hx Neurological Disorder: No Hx Respiratory Disorders: Yes (ASTHMA) Hx Cardiac Disorders: No Hx Psychiatric Problems: No Hx Miscellaneous Medical Probl: Yes (HPV , GALLSTONE) Hx Alcohol Use: No Hx Substance Use: No Hx Tobacco Use: No Smoking Status: Never smoker FmHx Family History: No coronary disease, No diabetes, No other Physical Exam Vitals Vital Signs Date Time Temp Pulse Resp B/P Pulse Ox O2 Delivery O2 Flow Rate FiO2 08/29/16 08:55 98.3 77 135/79 98 Physical Exam GENERAL: Well-developed, well-nourished female. Appears in no acute distress. HEAD: Normocephalic, atraumatic. EYES: Pupils are equally reactive bilaterally. EOMs grossly intact. No conjunctival erythema. ENT: Moist mucous membranes. No uvula deviation. No kissing tonsils. No exudates. NECK: Supple. No lymphadenopathy or thyromegaly. No meningismus. negative kernig. negative brudinski. LUNG: Clear to auscultation bilaterally. No rhonchi, wheezing, rales or coarse breath sounds. HEART: Regular rate and rhythm. No murmurs, rubs or gallops. ABDOMEN: No scars, ecchymosis or rashes noted. Soft, nontender, and nondistended. Positive bowel sounds in all four quadrants. No rebound tenderness , no guarding. (-) McBurneys point tenderness. No CVA tenderness. Tenderness in the right upper quadrant. BACK: No midline tenderness. Extremities: Equal pulses bilaterally. No peripheral clubbing, cyanosis or edema. No unilateral leg swelling. NEUROLOGIC: Alert and oriented. Moving all four extremities. 5/5 strength in all extremities. Normal speech. Steady gait. SKIN: Normal color. Warm and dry. No rashes or lesions. Capillary refill < 2 seconds Result Diagram: 08/29/16 0908/29/16 09 Results 24 hrs Laboratory Tests Test 08/29/16 09:29 08/29/16 09:43 White Blood Count 9.210^3/ul Red Blood Count 4.3510^6/ul Hemoglobin 12.3g/dl Hematocrit 37.5% Mean Corpuscular Volume 86.2fl Mean Corpuscular Hemoglobin 28.3pg Mean Corpuscular Hemoglobin Concent 32.8g/dl Red Cell Distribution Width 14.1% Platelet Count 96558^3/UL Mean Platelet Volume 10.9fl Neutrophils % 58.5% Lymphocytes % 32.6% Monocytes % 6.5% Eosinophils % 2.0% Basophils % 0.2% Nucleated Red Blood Cells % 0.0/100WBC Neutrophils # 5.410^3/ul Lymphocytes # 3.010^3/ul Monocytes # 0.610^3/ul Eosinophils # 0.210^3/ul Basophils # 0.010^3/ul Nucleated Red Blood Cells # 0.010^3/ul Urine Color YELLOW Urine Clarity CLEAR Urine pH 6.0 Urine Specific [place] >=1.030 Urine Ketones NEGATIVE Urine Nitrite NEGATIVE Urine Bilirubin NEGATIVE Urine Urobilinogen 0.2 E.U./dL Urine Leukocyte Esterase 1+ Urine Microscopic RBC 0-2/HPF Urine Microscopic WBC 10-25/HPF Urine Epithelial Cells MANY Urine Bacteria FEW Urine Hemoglobin 1+ Urine Glucose NEGATIVE% Urine Total Protein 1+ Sodium Level 140mmol/L Potassium Level 4.0mmol/L Chloride Level 106mmol/L Carbon Dioxide Level 26mmol/L Anion Gap 12 Blood Urea Nitrogen 16mg/dl Creatinine 0.65mg/dl Glucose Level 93mg/dl Uric Acid 3.1mg/dl Calcium Level 9.4mg/dl Total Bilirubin 0.3mg/dl Direct Bilirubin 0.00mg/dl Indirect Bilirubin 0.3mg/dl Aspartate Amino Transf (AST/SGOT) 53IU/L Alanine Aminotransferase (ALT/SGPT) 81IU/L Alkaline Phosphatase 101IU/L Troponin I < 0.012ng/ml Total Protein 7.3g/dl Albumin 4.7g/dl Globulin 2.60g/dl Albumin/Globulin Ratio 1.80 Lipase 37U/L Prothrombin Time 12.8Sec Prothrombin Time Ratio 1.0 INR International Normalized Ratio 0.96 Activated Partial Thromboplast Time 28.9Sec Current Medications Medications (Trade) Dose Ordered Sig/Robbie Route PRN Reason Start Time Stop Time Status Last Admin Dose Admin Famotidine (Pepcid) 20 mg ONCE STAT PO 08/29/16 09:22 08/29/16 09:25 DC 08/29/16 09:38 Miscellaneous Medication (Gi Cocktail (2)) 40 ml ONCE STAT PO 08/29/16 09:22 08/29/16 09:25 DC 08/29/16 09:38 Ondansetron HCl (Zofran Tab) 4 mg ONCE ONCE PO 08/29/16 09:30 08/29/16 09:31 DC 08/29/16 09:47 Procedures/MDM ER COURSE: I kept the patient and/or family informed of laboratory and diagnostic imaging results throughout the emergency room course. EKG, MONITORS, & DIAGNOSTIC IMAGING: [place] [id number] Radiology Main Line: [phone] DIAGNOSTIC IMAGING REPORT Patient: CIELO ALONSO : 1990 Age: 25 Sex: F MR #: [id number] DOS: 08/29/16 0922 Ordering MD: MUKESH LOPEZ PA-C Location: [facility] Room/Bed: PROCEDURE: Right Upper Quadrant Ultrasound. CLINICAL INDICATION: ruq and epigastric abdominal pain TECHNIQUE: Multiple real-time images were acquired of the patient's right upper quadrant abdomen and retroperitoneum utilizing a high resolution transducer. COMPARISON: None FINDINGS: The liver measures 16.4 cm, and demonstrates mildly increased echogenicity. The main portal vein is patent with proper directional flow. There is no intrahepatic biliary ductal dilatation. The extrahepatic common bile duct measures 6 mm. There is cholelithiasis. There is no gallbladder wall thickening or pericholecystic fluid. The visualized pancreas is unremarkable. The right kidney measures 12.6 cm and demonstrates normal echotexture. There is no right renal calculus or hydronephrosis. The visualized abdominal aorta and IVC are grossly unremarkable. IMPRESSION: Cholelithiasis without evidence of acute cholecystitis. The CBD is top - normal in diameter. Mild hepatomegaly with mild fatty infiltration. RPTAT: EE Physician Fauzia Date Time Electronically viewed and signed by Physician Fauzia on 08/29/2016 10:37 RA/ CC: MUKESH LOPEZ PA-C MEDICATIONS: Zofran, GI cocktail. Tolerated well and stated improvement in symptoms. LAB INTERPRETATION: CBC showed no evidence of systemic infection or severe anemia. CMP showed no evidence of electrolyte abnormalities, severe acidosis, alkalosis, renal failure , or liver disease. Lipase showed no evidence of acute pancreatitis. UA shows positive leukocytes with no nitrites or hematuria. 1+ protein urine test was negative. Uric acid was within normal limits. Negative troponin. PT/ INR within normal limits. MEDICAL DECISION MAKING: This is a 25-year-old female who presents with right upper quadrant pain 3 days. Vital signs were reviewed. Patient is afebrile. Patient is not hypoxic. Patient's blood pressure is 135/79. I consulted with Dr. Carter regarding this patient who reviewed all imaging studies and laboratory studies. Patient has cholelithiasis as read by radiologist with no signs of choledocholithiasis or cholecystitis. I have low suspicion for preeclampsia at this time and low suspicion for eclampsia. Low suspicion for ACS, AAA, perforated ulcer, bowel obstruction, cholecystitis, choledocholithiasis, cholangitis, pancreatitis, hepatic abscess, appendicitis, diverticulitis, gastroenteritis, hepatitis, peptic ulcer disease, HELLP syndrome. At this time patient does not need to be admitted and is stable for outpatient therapy. Blood pressure was rechecked and is down trending. Patient also has a UTI. However patient is on Cipro 5000 and no antibiotics will be given. Patient to continue taking medication as prescribed by her other doctor. DISCHARGE: At this time, patient is stable for discharge and outpatient management with no new complaints during the ER course. Patient was sent home with Patricia and Riley and copy of all imaging and laboratory studies and to follow-up with PCP.. Patient will be discharged home with instructions to recheck for new or worsening symptoms such as fever, nausea, weakness, LOC and to follow up with primary care in the next 1-2 days. Patient was advised to return to the ER for any new or worsening symptoms. Plan was discussed and patient and/or family understands and agrees. Home instructions were given. Departure Diagnosis: Primary Impression: Cholelithiasis Cholelithiasis location: other site Biliary obstruction: without biliary obstruction Qualified Code: K80.80 - Biliary calculus of other site without obstruction Additional Impression: UTI (urinary tract infection) Urinary tract infection type: acute cystitis Hematuria presence: without hematuria Qualified Code: N30.00 - Acute cystitis without hematuria Condition: Stable Patient Instructions: Treating Gallstones, Gallstones Additional Instructions: Call your primary care doctor TOMORROW for an appointment during the next 1-2 days.See the doctor sooner or return here if your condition worsens before your appointment time. MUKESH LOPEZ PA-C Aug 29, 2016 11:07
[2016-08-29 11:12] VITALS: BP 122/78; PULSE 72; RESP 20; TEMP 98.3
[2016-08-29] MEDS ORDERED: IBUP-1542 PO (19:37)
== END 2016-08-29 11:12 | disposition home or self-care (01) ==
LOC: FTE 08:52
DX: K80.80 Other cholelithiasis without obstruction (principal); N30.00 Acute cystitis without hematuria; J45.909 Unspecified asthma, uncomplicated
CPT/HCPCS: 76705; 80053; 81001; 83690; 84484; 84560; 85025; 85610; 85730; Z7610; 36415

== ENCOUNTER 2016-08-29 17:38 | Emergency (ER) | payer OTHER ==
[~2016-08-29] VITALS: Ht 165.1 cm; Wt 81.5 kg
[~2016-08-29 17:38] MED LIST changes: +HYDR-906 PO; +ONDA4TAB14 PO
[2016-08-29 17:40] VITALS: Ht 165.1 cm; Wt 81.5 kg
[2016-08-29] MEDS ORDERED: KETOROLAC 30 MG INJ IV STA (18:07)
[2016-08-29] MEDS ORDERED: ONDANSETRON 4 MG INJ IV STA (18:07)
[2016-08-29] MEDS ORDERED: SOD CHLORIDE 0.9% 1,000 ML IV ONE (18:30)
[2016-08-29] MEDS ORDERED: HYDROCODONE/APAP (10/325) TAB PO ONE (19:30)
[2016-08-29] MEDS ORDERED: IBUP-1542 PO (19:37)
[2016-08-29] MEDS ORDERED: ONDA4TAB14 PO (19:38)
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
[2016-08-29 20:10] VITALS: BP 158/90; PULSE 60; RESP 20; TEMP 98
== END 2016-08-29 20:15 | disposition home or self-care (01) ==
LOC: FTE 17:38
DX: K80.80 Other cholelithiasis without obstruction (principal); R11.10 Vomiting, unspecified; J45.909 Unspecified asthma, uncomplicated
CPT/HCPCS: J1885; J2405; J7030; Z7610; 96374; 96375

== ENCOUNTER → 2016-10-18 | Day surgery (SDC) | payer OTHER ==
[~2016-10-18] VITALS: Ht 162.6 cm; Wt 80.5 kg
[2016-10-18] VITALS (12 sets, daily range): BP systolic 109–126; BP diastolic 56–85; PULSE 58–96; RESP 17–18; Ht 162.6 cm; Wt 80.5 kg
[~2016-10-18] MED LIST changes: +BUPIVACAINE 0.25% (MPF) 30 ML INJ ONE; +CEFAZOLIN 1 GM INJ ONE; +CEFAZOLIN 2 GM/50 ML (PMX) 50 ML IVPB ONE; +DEXAMETHASONE 4 MG/ML 1 ML INJ ONE; +DIPHENHYDRAMINE 50 MG INJ IV PRN; +FAMOTIDINE 20 MG INJ ONE; +FENTAnyl 50 MCG/ML VIAL IV PRN; +FENTAnyl 50 MCG/ML VIAL ONE; +GLYCOPYRROLATE 0.4 MG INJ ONE; +HYDROCODONE/APAP (5/325) TAB PO ONE; +HYDROmorphONE (0.2 MG/ML) 10ML SYG IV PRN; +IBUP-1542 PO; +KETOROLAC 30 MG INJ ONE; +LIDOCAINE 2% (SDV) 5 ML INJ ONE; +MEPERIDINE 25 MG INJ IV PRN; +METOCLOPRAMIDE 10 MG INJ IV PRN; +MIDAZOLAM 1 MG/ML 2 ML INJ ONE; +NEOSTIGMINE 3 MG/3 ML SYRINGE ONE; +ONDANSETRON 4 MG INJ IV PRN; +ONDANSETRON 4 MG INJ ONE; +OXYCODONE/ACETAMINOPHEN (5/325) TAB PO PRN; +PHENYLephrine (100 MCG/ML) 5ML SYG ONE; +PROCHLORPERAZINE 10 MG INJ IV PRN; +PROPOFOL 20 ML ONE; +ROCURONIUM 50 MG INJ ONE; +SEVOFLURANE 15 MIN ONE; +SOD CHLORIDE 0.9% 1,000 ML IV SCH; +SUCCINYLCHOLINE CHLORIDE 100 MG/5 ML SYG IV ONE
--- NOTE | 2016-10-18 15:06 | OPR ---
Date/Time of Note Date/Time of Note DATE: 10/18/16 TIME: 15:04 Operative Report Procedure Date: Oct 18, 2016 Preoperative Diagnosis symptomatic gallstones Postoperative Diagnosis same Operation Performed 1. laparoscopic cholecystectomy 2. therapeutic injection of subcutaneous marcaine Surgeon: Cisco PATTERSON Anesthesia: general Specimens gallbladder Indications This is a 25-year-old female with symptomatic gallstones. She required surgical excision of her gallbladder. Risks alternatives benefits and percent were discussed the patient. Patient expressed understanding consents to the operation. Procedure Description Patient taken to the OR and prepped and draped in usual sterile fashion. Surgical timeout was performed IV antibiotics given. Infraumbilical transverse incision is made with a 15 blade. Dissection cautery was carried onto the fascia. The fascia was grasped with Barton's and divided with curved Fountain scissors. 0 Vicryl U stitch is placed to the fascia balloon Ivory trocar is introduced pneumoperitoneum is established. Midepigastric 12 mm optical trocar right upper quadrant right upper flank 5 mm optical trochars were placed under direct visualization. Upon initial inspection the liver appears completely normal and there is no evidence that a biopsy is required. Attention is paid to the gallbladder. The fundus was grasped and retracted in a lateral fashion. The cystic duct is identified a critical view is established the cystic duct is divided with 3 clips proximally and distally the tissues were thickened so this was divided with a 35 mm echelon vascular stapler. The cystic artery was divided using 3 clips proximal 1 clip distal. Gallbladder signal of the gallbladder bed there is good hemostasis gallbladder is retrieved using an Endo Catch bag. Ports removed under direct visualization. 0 Vicryl U stitch was tied down. Skin is closed using skin oneil local anesthesia is injected dry dressings were applied. Cisco PATTERSON Oct 18, 2016 15:06
== END | disposition home or self-care (01) ==
LOC: SDS 12:12
PROVIDERS: ATTEND Surgery
DX: K80.10 Calculus of gallbladder with chronic cholecystitis without obstruction (principal); J45.909 Unspecified asthma, uncomplicated; E66.9 Obesity, unspecified; Z68.30 Body mass index [BMI] 30.0-30.9, adult; Z88.5 Allergy status to narcotic agent
CPT/HCPCS: 47562; 88304; J0690; J1100; J1885; J2250; J2370; J2405; J2710; J3010; Z7512; Z7610; J7999